=== PATIENT | male | born 1960 | race Caucasian/White ===

== ENCOUNTER 2019-03-25 12:11 | Outpatient (CLI) | payer OTHER, SELFPAY ==
[2019-03-25] VITALS (7 sets, daily range): BP systolic 128–156; BP diastolic 82–109; PULSE 64–83; RESP 10–18; TEMP 36.8; O2SAT 92–96
--- NOTE | ~2019-03-25 | CT_ITS ---
EXAMINATION: CT biopsy bone deep DATE: 03/25/2019 13:38 INDICATION: Sclerotic lesion of right ilium. TECHNIQUE: The procedure including the risks, benefits, and alternatives was discussed with the patie nt. Risks discussed included bleeding and infection. The patient verbalized understanding of the risk s and agreed to proceed. The skin overlying the right ilium was prepped and draped in usual sterile fashion. Anesthetic was administered with 1% lidocaine subcutaneously. Moderate sedation was achieve d with 2 mg Versed IV and 200 mcg sincalide IV. An 11-gauge core biopsy needle was used to acquire [address] guidance. The mA was adjusted according to patient size. Iterative reconstruction tech nique was employed. The dose-length product was 166.06 mGy-cm. The needle was removed and the entry s ite was cleaned and dressed. There were no immediate complications. FINDINGS: CT images demonstrate the outer needle tip in a 1.7 cm sclerotic lesion in right ilium IMPRESSION: 1. CT-guided core needle biopsy of a sclerotic lesion in right ilium. Reviewed, dictated and finalized at location A. [employer]
--- NOTE | 2019-03-25 12:37 | P.SEDATION_ITS ---
Moderate Sedation Note-Pt Data Patient Data Diagnosis: Sclerotic lesion in right ilium. Present Complaint: Sclerotic lesion in right ilium. Procedure to be performed/Plan: CT-guided bone biopsy of right ilium. Allergies Allergy/AdvReac Type Severity Reaction Status Date / Time No Known Allergies Allergy Verified 03/10/19 13:04 Home Medications Medication Instructions Recorded Confirmed Type alprazolam 1 mg tablet 1 mg PO BID 01/13/19 History metformin 500 mg tablet 500 mg PO TID 01/13/19 History Sedation/Anesthesia: No previous sedation/anesthesia problems (including family history). FOR[facility] Social History Social History (Updated 03/25/19 @ 12:39 by Jeremy Hubbard MD) Years smoked: 30 Smoking status: Former smoker Tobacco type: cigarettes Mod Sed Physical Exam Physical Exam Pre Procedural Exam: Normal: Appearance, Lungs, Heart Rate and Heart Rhythm and Variation: Airway (Mallampati class II.) and Abdomen (Mild tenderness left abdomen.) Hours since solid foods: 6 Hours since liquid intake: 6 ASA Classification/Sedation ASA Classification/Sedation ASA Class: II Risks: Risks, benefits and alternatives explained and patient/family accepted plan for sedation. Patient re-evaluated immediately prior to sedation.
== END 2019-03-25 12:12 | disposition home or self-care (01) ==
PROVIDERS: Radiology Diagnostic Radiology; PCP Internal Medicine Infectious Disease; Visit Provider Internal Medicine Infectious Disease
DX: R93.89 Abnormal findings on diagnostic imaging of other specified body structures (principal)
CPT/HCPCS: 20225; 77012; 88307; J2250; J3010